=== PATIENT | female | born 1995 | race Two or more races ===

== ENCOUNTER 2019-11-12 09:18 | Inpatient (IN) | payer OTHER ==
[2019-11-12] MEDS ORDERED: LORAZEPAM INJ 2 MG/1 ML VIAL IV ONE ×2 (09:24→09:29)
[2019-11-12] MEDS ORDERED: NORMAL SALINE 1000 ML 1,000 ML IV ONE (09:30)
--- NOTE | 2019-11-12 09:33 | ER Document Report ---
ED Seizure - General Stated Complaint: POSSIBLE SEIZURE Time Seen by Provider: 11/12/19 09:21 Notes: Patient is a 24-year-old female with a past medical history of diabetes who presents emergency department with possible seizure. Patient's is at bedside and states that she had a possible seizure at home and then again here in the emergency department. Patient came in via EMS and her blood sugar was 192, which is normal for her, according to the . Patient reports that the patient has been having diarrhea, but this is from her medication. denies any alcohol use, tobacco use, or illicit drug use. Patient was recently switched from Jardiance to Rybelsus for her diabetes. According to the , the patient's blood sugars have been anywhere from 120-230. - Related Data Allergies/Adverse Reactions: No Known Allergies Allergy (Unverified 11/12/19 15:02) Past Medical History - Social History Smoking Status: Never Smoker Family History: Reviewed & Not Pertinent Review of Systems - Review of Systems -: Yes ROS unobtainable due to patient's medical condition Physical Exam - Vital signs Vitals: Resp Pulse Ox 27 H 100 11/12/19 09:29 11/12/19 09:29 - Notes Notes: PHYSICAL EXAMINATION: GENERAL: Appears ill. HEAD: Normocephalic, atraumatic. EYES: PERRL, conjunctiva normal, all extraocular movements intact, sclera nonicteric ENT: Moist mucous membranes. NECK: Supple, no noticeable swelling, redness, rash. Normal range of motion. LUNGS: Coarse breath sounds noted to left upper lobe. CARDIOVASCULAR: S1-S2, regular rate, regular rhythm. Radial pulses 2+, normal. ABDOMEN: Normoactive bowel sounds. Soft, nontender, no guarding, no rebound tenderness, and no masses palpated. EXTREMITIES: Normal strength and range of motion, no pitting or edema. No cyanosis. NEUROLOGICAL: Postictal. SKIN: Warm, dry. No rash, lesions, ulcerations noted. Normal skin turgor. Course - Re-evaluation Re-evalutation: 11/12/19 10:34 Patient is now alert and oriented to person, but is confused is why to she is here in the hospital. CO2 is 9 and anion gap is 22. Patient received 1 L of IV fluids. Her heart rate has improved from 150s to 138. Chest x-ray is unremarkable. 11/12/19 11:53 Hematology is unremarkable. Blood gas shows a pH of 7.21 with a bicarb of 12.6. This was after a liter of fluids. CO2 on labs is 9. Anion gap is 22. Recheck the patient's blood glucose in her sugar is 200. hCG is negative. LFTs are u nremarkable. Urinalysis shows protein, glucose, and ketones in her urine. Toxicology is unremarkable and serum alcohol is negative. I spoke with Dr. Heath, the hospitalist. Patient will be admitted to [facility]. Patient also started on insulin drip with D5 half NS with 20 M EQ's of potassium, as po tassium is only 4.1. I reevaluated the patient asked if she had any shortness of breath, as she is on some control. She denies any shortness of breath or difficulty breathing. I have a low suspicion for pulmonary emboli. Her tachycardia is most likely due to her diabetic ketoacidosis. - Vital Signs Vital signs: Temp Pulse Resp BP Pulse Ox 98.3 F 109 H 20 99/64 L 100 11/12/19 20:29 11/12/19 20:29 11/12/19 20:29 11/12/19 20:29 11/12/19 20:29 - Laboratory Result Diagrams: 11/12/19 09:40 11/12/19 12:47 Laboratory results interpreted by me: 11/12/19 11/12/19 11/12/19 09:40 09:40 09:40 MCV 98 H VBG pH VBG pCO2 VBG HCO3 Carbon Dioxide 9 L* Anion Gap 22 H Glucose 237 H POC Glucose Ferritin 200.00 H Urine Protein Urine Glucose (UA) Urine Ketones Urine Blood Ur Leukocyte Esterase 11/12/19 11/12/19 11/12/19 10:35 10:50 11:32 MCV VBG pH 7.21 L VBG pCO2 32.4 L VBG HCO3 12.6 L Carbon Dioxide Anion Gap Glucose POC Glucose 200 H Ferritin Urine Protein 30 H Urine Glucose (UA) 150 H Urine Ketones 20 H Urine Blood MODERATE H Ur Leukocyte Esterase TRACE H - EKG Interpretation by Me Additional EKG results interpreted by me: 11/12/19 10:35 Sinus tachycardia. Rate 136; OK 124; QRS 74; QT 288; QTc 434. No ST elevations or depressions noted. Critical Care Note - Critical Care Note Total time excluding time spent on procedures (mins): 30 Comments: Critical care time spent obtaining history from patient or surrogate, discussions with consultants, development of treatment plan with patient or surrogate, evaluation of patient's response to treatment, examination of patient, ordering and performing treatments and interventions, ordering and review of laboratory studies, re-evaluation of patient's condition, ordering and review of radiographic studies and review of old charts Discharge - Discharge Clinical Impression: Seizure Diabetic ketoacidosis Qualifiers: Diabetes mellitus type: other specified (including JAMES) Diabetes mellitus complication detail: with coma Qualified Code(s): E13.11 - Other specified diabetes mellitus with ketoacidosis with coma Condition: Stable Disposition: ADMITTED INPATIENT Admitting Provider: Ivana (Hospitalist) Unit Admitted: [facility]
[2019-11-12 09:53] LABS: ABSOLUTE EOSINOPHILS # (AUTO) 0.1 10^3/uL (0.0-0.6); ABSOLUTE LYMPHOCYTES (AUTO) 2.6 10^3/uL (0.5-4.7); ABSOLUTE MONOCYTES (AUTO) 0.4 10^3/uL (0.1-1.4); ABSOLUTE NEUT (AUTO) 4.2 10^3/uL (1.7-8.2); BASOPHILS % (AUTO) 0.6 % (0-2); EOSINOPHILS % (AUTO) 1.5 % (0-6); HEMATOCRIT 40.6 % (36.0-47.0); HEMOGLOBIN 13.9 g/dL (12.0-15.5); LYMPHOCYTES % (AUTO) 35.2 % (13-45); MEAN CORPUSCULAR HEMOGLOBIN 33.4 pg (27.0-33.4); MEAN CORPUSCULAR HGB CONC 34.2 g/dL (32.0-36.0); MEAN CORPUSCULAR VOLUME 98 fl (80-97); PLATELET COUNT 304 10^3/uL (150-450); RED BLOOD COUNT 4.15 10^6/uL (3.72-5.28); RED CELL DISTRIBUTION WIDTH 12.6 % (11.5-14.0); SEGMENTED NEUTROPHILS % (AUTO) 56.7 % (42-78); TOTAL CELLS COUNTED % (AUTO) 100 %; WHITE BLOOD COUNT 7.4 10^3/uL (4.0-10.5)
[2019-11-12 10:07] LABS: ALBUMIN 3.8 g/dL (3.5-5.0); ALKALINE PHOSPHATASE 57 U/L (38-126); ASPARTATE AMINO TRANSFERASE 32 U/L (14-36); BILIRUBIN,DIRECT 0.1 mg/dL (0.0-0.4); BILIRUBIN,TOTAL 0.3 mg/dL (0.2-1.3); BLOOD UREA NITROGEN 20 mg/dL (7-20); CALCIUM 8.5 mg/dL (8.4-10.2); GLUCOSE 237 mg/dL (75-110); POTASSIUM 4.1 mmol/L (3.6-5.0); TOTAL PROTEIN 6.8 g/dL (6.3-8.2)
[2019-11-12 10:12] LABS: CHLORIDE 107 mmol/L (98-107)
[2019-11-12 10:14] LABS: ALCOHOL < 10 mg/dL (NONE DETECTED)
[2019-11-12 10:15] LABS: ANION GAP 22 (5-19); CARBON DIOXIDE 9 mmol/L (22-30)
--- NOTE | 2019-11-12 10:25 | RADIOLOGY REPORT (SQ) ---
EXAM DESCRIPTION: CHEST SINGLE VIEW IMAGES COMPLETED DATE/TIME: 11/12/2019 9:02 am REASON FOR STUDY: tachycardic. COMPARISON: None. EXAM PARAMETERS: NUMBER OF VIEWS: One view. TECHNIQUE: Single frontal radiographic view of the chest acquired. RADIATION DOSE: NA LIMITATIONS: None. FINDINGS: LUNGS AND PLEURA: No opacities, masses or pneumothorax. No pleural effusion. MEDIASTINUM AND HILAR STRUCTURES: No masses. Contour normal. HEART AND VASCULAR STRUCTURES: Heart normal in size. Normal vasculature. BONES: No acute findings. HARDWARE: None in the chest. OTHER: No other significant finding. IMPRESSION: NO ACUTE RADIOGRAPHIC FINDING IN THE CHEST. TECHNICAL DOCUMENTATION: JOB ID: [id number] 2010 [employer]- All Rights Reserved Reading location - IP/workstation name: [email or web address]
[2019-11-12] MEDS ORDERED: RINGERS SOLUTION,LACTATED 1,000 ML IV ONE (10:36)
--- NOTE | 2019-11-12 10:36 | RADIOLOGY REPORT (SQ) ---
EXAM DESCRIPTION: CT HEAD WITHOUT IMAGES COMPLETED DATE/TIME: 11/12/2019 10:16 am REASON FOR STUDY: bed 11 new onset seizure [address] COMPARISON: None. TECHNIQUE: Axial images acquired through the brain without intravenous contrast. Images reviewed wi th bone, brain and subdural windows. Images stored on PACS. All CT scanners at this facility use dose modulation, iterative reconstruction, and/or weight based d osing when appropriate to reduce radiation dose to as low as reasonably achievable (ALARA). [facility]: Dose Right [facility]: SureCare [facility]: Dose Right [facility]: Teradose 4D [facility]: Shyp RADIATION DOSE: CT Rad equipment meets quality standard of care and radiation dose reduction techniq ues were employed. CTDIvol: 53.2 mGy. DLP: 1044 mGy-cm. mGy. LIMITATIONS: The study is significantly limited due to motion during the exam, present on 4 of the i mages. The motion affected images were not repeated. FINDINGS: VENTRICLES: Normal size and contour. CEREBRUM: No mass effect. No hemorrhage. No midline shift. Normal car/white matter differentiatio n. No evidence for acute territorial infarction. CEREBELLUM: No mass effect. No hemorrhage. No alteration of density. No evidence for acute infarct ion. EXTRAAXIAL SPACES: No fluid collections. ORBITS AND GLOBE: Symmetrical contour of the globes. CALVARIUM: No depressed skull fracture. PARANASAL SINUSES: No air-fluid level. SOFT TISSUES: No hematoma. IMPRESSION: 1. Significantly limiting motion on some of the images. 2. Allowing for motion, normal study. TECHNICAL DOCUMENTATION: JOB ID: [id number] [address] [id number]: Final reports with documentation of one or more dose reduction techniques (e.g., Automate d exposure control, adjustment of the mA and/or kV according to patient size, use of iterative recons truction technique) 2010 [employer]- All Rights Reserved Reading location - IP/workstation name: [email or web address]
[2019-11-12 10:58] LABS: APPEARANCE,URINE CLEAR; BILIRUBIN,URINE NEGATIVE (NEGATIVE); COLOR,URINE YELLOW; GLUCOSE, URINE 150 mg/dL (NEGATIVE); KETONES,URINE 20 mg/dL (NEGATIVE); LEUKOCYTE ESTERASE,URINE TRACE (NEGATIVE); NITRITE,URINE NEGATIVE (NEGATIVE); PROTEIN,URINE 30 mg/dL (NEGATIVE); UROBILINOGEN,URINE NEGATIVE mg/dL (<2.0)
[2019-11-12 11:04] LABS: VENOUS BLOOD BASE EXCESS -14.1 mmol/L; VENOUS BLOOD HCO3 12.6 mmol/L (20-32); VENOUS BLOOD PCO2 32.4 mmHg (35-63); VENOUS BLOOD PH 7.21 (7.30-7.42)
[2019-11-12 11:26] LABS: URINE AMPHETAMINES SCREEN NEGATIVE; URINE BARBITURATES SCREEN NEGATIVE; URINE BENZODIAZEPINES SCREEN NEGATIVE; URINE COCAINE SCREEN NEGATIVE; URINE MARIJUANA (THC) SCREEN NEGATIVE; URINE METHADONE SCREEN NEGATIVE; URINE PHENCYCLIDINE SCREEN NEGATIVE
[2019-11-12] MEDS ORDERED: INSULIN REG, HUMAN 100 UNIT/ML 3 ML VIAL (PYX) IV ONE (11:45)
[2019-11-12] MEDS ORDERED: POTASSI CL 20 MEQ/D5-1/2NS 1L 1,000 ML IV PRN (11:47)
[2019-11-12] MEDS ORDERED: NORMAL SALINE 100 ML with INSULIN REGULAR, HUMAN 100 UNIT IV PRN ×2 (12:06)
[2019-11-12 13:34] LABS: ANION GAP 12 (5-19); BLOOD UREA NITROGEN 14 mg/dL (7-20); CALCIUM 8.4 mg/dL (8.4-10.2); CARBON DIOXIDE 18 mmol/L (22-30); CHLORIDE 107 mmol/L (98-107); GLUCOSE 154 mg/dL (75-110); POTASSIUM 4.2 mmol/L (3.6-5.0)
[2019-11-12] MEDS ORDERED: ONDANSETRON 4 MG TAB.RAPDIS PO PRN (16:36)
[2019-11-12] MEDS ORDERED: ACETAMINOPHEN 325 MG TABLET PO PRN (16:36)
[2019-11-12] MEDS ORDERED: LORAZEPAM INJ 2 MG/1 ML VIAL IV PRN (16:58)
--- NOTE | 2019-11-12 17:27 | PDOC H&P ---
History of Present Illness Admission Date/PCP: 11/12/19 12:19 History of Present Illness: BRANDY PATIÑO is a 24 year old female past medical history significant for diabetes mellitus only on semaglutide, oral contraceptive use with Estarylla, bilateral hearing loss of unknown cause who presents with a 1 day history of new onset seizure activity tonic-clonic witnessed by which awoke her from sleep. EMS came to patient's home brought her to ED and she had another witnessed tonic-clonic seizure. Patient was found to be in DKA with high blood sugar and a gap acidosis. Patient denies ever having seizures in the past and states she is a type II diabetic as diagnosed by her PCP. She has never used insulin before. Chest x-ray was unremarkable as well as her head CT on ad mission. By far the most remarkable finding on physical exam is how extremely emaciated the patient is in terms of her muscle mass in general appearance. She is weak all over but this is equal and there are no focal findings. She has a negative neurologic exam other than this. Reflexes and cranial nerves are intact grossly. Patient denies any history of autoimmune disease but states that she has a maternal aunt who has type 1 diabetes. Patient states she had an upper and lower endoscopy within the past year but she does not remember why this was done or what the results were. Patient is highly suspicious for a autoimmune malabsorption disease. She will be admitted to stepdown unit with seizure precautions, as needed Ativan, extensive metabolic and autoimmune work- up, MRI brain, EEG. She will have sliding scale insulin and Accu-Cheks but we will keep her off the insulin drip for now given she is insulin corey and has a high likelihood of dropping her blood sugar precipitously if she is given too much insulin too quickly. Past Medical History Endocrine Medical History: Reports: Diabetes Mellitus Type 2 Psychiatric Medical History: Denies: Depression Past Surgical History Past Surgical History: Reports: None Social History Lives with: Family Smoking Status: Never Smoker Frequency of Alcohol Use: None Hx Recreational Drug Use: No Drugs: None Hx Prescription Drug Abuse: No - Advance Directive Resuscitation Status: Full Code Surrogate healthcare decision maker:: Family History Family History: DM Parental Family History Reviewed: Yes Children Family History Reviewed: Yes Sibling(s) Family History Reviewed.: Yes Medication/Allergy Home Medications: Semaglutide [Rybelsus] 3 mg PO DAILY 11/12/19 Allergies/Adverse Reactions: No Known Allergies Allergy (Unverified 11/12/19 15:02) Review of Systems All systems: reviewed and no additional remarkable complaints except as stated - Review of systems per HPI, otherwise negative Physical Exam Vital Signs: Temp Pulse Resp BP Pulse Ox 98.1 F 113 H 16 108/70 100 11/12/19 16:42 11/12/19 16:42 11/12/19 16:42 11/12/19 16:42 11/12/19 16:42 Intake & Output 11/11/19 11/12/19 11/13/19 06:59 06:59 06:59 Intake Total 1999 Balance 1999 Weight 33.2 kg General appearance: PRESENT: no acute distress, cooperative, hard of hearing, thin, other - Severe diffuse muscle wasting and cachexia Head exam: PRESENT: atraumatic, normocephalic Eye exam: PRESENT: conjunctiva pink Mouth exam: PRESENT: moist Respiratory exam: PRESENT: clear to auscultation dusty. ABSENT: rales, rhonchi, wheezes Cardiovascular exam: PRESENT: RRR. ABSENT: diastolic murmur, rubs, systolic murmur GI/Abdominal exam: PRESENT: normal bowel sounds, soft. ABSENT: distended, guarding, mass, organolmegaly, rebound, tenderness Rectal exam: PRESENT: deferred Extremities exam: ABSENT: pedal edema Musculoskeletal exam: PRESENT: ambulatory Neurological exam: PRESENT: alert, awake, oriented to person, oriented to place, oriented to time, oriented to situation, CN II-XII grossly intact, motor sensory deficit - Diffuse generalized muscle weakness Psychiatric exam: PRESENT: flat affect, normal mood Skin exam: PRESENT: dry, intact, warm Results Laboratory Results: 11/12/19 09:40 11/12/19 12:47 11/12/19 11/12/19 11/12/19 09:40 09:40 09:40 WBC 7.4 RBC 4.15 Hgb 13.9 Hct 40.6 MCV 98 H MCH 33.4 MCHC 34.2 RDW 12.6 Plt Count 304 Seg Neutrophils % 56.7 VBG pH VBG pCO2 VBG HCO3 VBG Base Excess Sodium 137.7 Potassium 4.1 Chloride 107 Carbon Dioxide 9 L* Anion Gap 22 H BUN 20 Creatinine 0.56 Est GFR ( Amer) > 60 Glucose 237 H Calcium 8.5 Magnesium 2.1 Total Bilirubin 0.3 AST 32 Alkaline Phosphatase 57 Total Protein 6.8 Albumin 3.8 Serum HCG, Qual NEGATIVE Urine Color Urine Appearance Urine pH Ur Specific [place] Urine Protein Urine Glucose (UA) Urine Ketones Urine Blood Urine Nitrite Ur Leukocyte Esterase Urine WBC (Auto) Urine RBC (Auto) 11/12/19 11/12/19 11/12/19 10:35 10:50 12:47 WBC RBC Hgb Hct MCV MCH MCHC RDW Plt Count Seg Neutrophils % VBG pH 7.21 L VBG pCO2 32.4 L VBG HCO3 12.6 L VBG Base Excess -14.1 Sodium 136.5 L Potassium 4.2 Chloride 107 Carbon Dioxide 18 L Anion Gap 12 BUN 14 Creatinine 0.45 L Est GFR ( Amer) > 60 Glucose 154 H Calcium 8.4 Magnesium Total Bilirubin AST Alkaline Phosphatase Total Protein Albumin Serum HCG, Qual Urine Color YELLOW Urine Appearance CLEAR Urine pH 5.0 Ur Specific [place] 1.020 Urine Protein 30 H Urine Glucose (UA) 150 H Urine Ketones 20 H Urine Blood MODERATE H Urine Nitrite NEGATIVE Ur Leukocyte Esterase TRACE H Urine WBC (Auto) 3 Urine RBC (Auto) 1 Impressions: Head CT 11/12/19 00:00 IMPRESSION: 1. Significantly limiting motion on some of the images. 2. Allowing for motion, normal study. Chest X-Ray 11/12/19 09:33 IMPRESSION: NO ACUTE RADIOGRAPHIC FINDING IN THE CHEST. Assessment and Plan - Diagnosis (1) Seizure Is this a current diagnosis for this admission?: Yes Plan: New onset seizures, possibly related to DKA, also very likely malabsorption/malnutrition is a large contributing factor As needed Ativan for seizure-like activity, seizure precautions, neuro checks EEG MRI brain with and without contrast Needs follow-up with neurology (2) Diabetic ketoacidosis Qualifiers: Diabetes mellitus type: other specified (including JAMES) Diabetes mellitus complication detail: with coma Qualified Code(s): E13.11 - Other specified diabetes mellitus with ketoacidosis with coma Is this a current diagnosis for this admission?: Yes Plan: Admitted with anion gap metabolic acidosis due to DKA. 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 possibly pancreatic insufficiency Stool elastase, anti-pancreas antibodies as above, vitamin levels, celiac antibodies Extensive work-up as above (4) Bilateral hearing loss Is this a current diagnosis for this admission?: Yes Plan: Progressive hearing loss over the past 2 to 3 years per patient, unknown etiology Highly suspect autoimmune/mitochondrial/genetic etiology Needs formal hearing exam and follow-up with ENT (5) Acute metabolic encephalopathy Is this a current diagnosis for this admission?: Yes Plan: Due to postictal state, gradually improving - Time Time Spent with patient: 35 or more minutes Medications reviewed and adjusted accordingly: Yes Anticipated Discharge Disposition: Home, Self Care Anticipated Discharge Timeframe: within 72 hours - Inpatient Certification Based on my medical assessment, after consideration of the patient's comorbidities, presenting symptoms, or acuity I expect that the services needed warrant INPATIENT care.: Yes I certify that my determination is in accordance with my understanding of Medicare's requirements for reasonable and necessary INPATIENT services [42 CFR 412.3e].: Yes Medical Necessity: Significant Comorbidiites Make Outpatient Treatment Too Risky, Need Close Monitoring Due to Risk of Patient Decompensation, Need For IV Fluids, Need for Neurological Checks, Risk of Complication if Not Cared For in Hospital, Risk of Diagnosis Which Will Require Inpatient Eval/Care/Monitoring
--- NOTE | 2019-11-12 17:32 | ADVANCED CARE ---
- Diagnosis (1) Seizure Diagnosis Current: Yes (2) Diabetic ketoacidosis Diagnosis Current: Yes (3) Severe protein-calorie malnutrition Diagnosis Current: Yes (4) Bilateral hearing loss Diagnosis Current: Yes (5) Acute metabolic encephalopathy Diagnosis Current: Yes Attendance: Patient and Resuscitation Status: Full Code Discussion: All aspects of code status discussed with patient/POA including cardioversion, chest compressions, and intubation and the patient/POA indicated they wish to be full code MPOA is designated as: Time Spent: >16 minutes
[2019-11-12] MEDS: RINGERS SOLUTION,LACTATED 1,000 ML IV PRN (17:44)
[2019-11-12 18:13] LABS: C-REACTIVE PROTEIN 7.1 mg/L (<10.0)
[2019-11-12 19:26] LABS: ABSOLUTE RETICS # 0.048 10^6/uL (0.028-0.122); RETICULOCYTE COUNT (AUTO) 1.08 % (0.66-2.85)
[2019-11-12 20:01] LABS: ERYTHROCYTE SEDIMENTATION RATE 10 mm/hr (0-20)
--- NOTE | 2019-11-12 20:29 | EKG REPORT ---
SEVERITY:- OTHERWISE NORMAL ECG - SINUS TACHYCARDIA : Confirmed by: Anderson Dasilva 12-Nov-2019 20:28:18
[2019-11-12] MEDS: INSULIN LISPRO 100 UNIT/ML 3 ML VIAL SUBCUT SCH (21:51)
[2019-11-13] MEDS: RINGERS SOLUTION,LACTATED 1,000 ML IV PRN ×2 (03:38→15:01)
[2019-11-13 06:44] LABS: ANION GAP 13 (5-19); BLOOD UREA NITROGEN 10 mg/dL (7-20); CALCIUM 9.2 mg/dL (8.4-10.2); CARBON DIOXIDE 19 mmol/L (22-30); CHLORIDE 105 mmol/L (98-107); GLUCOSE 121 mg/dL (75-110); PHOSPHORUS 3.9 mg/dL (2.5-4.5); POTASSIUM 4.1 mmol/L (3.6-5.0)
[2019-11-13 06:58] LABS: FREE T4 (FREE THYROXINE) 1.01 ng/dL (0.78-2.19)
[2019-11-13 07:11] LABS: THYROID STIMULATING HORMONE 0.67 uIU/mL (0.47-4.68)
[2019-11-13] MEDS: INSULIN LISPRO 100 UNIT/ML 3 ML VIAL SUBCUT SCH ×4 (09:16→21:33)
[2019-11-13] MEDS: ENOXAPARIN SODIUM INJ 30 MG/0.3 ML DISP.SYRIN SUBCUT SCH (09:26)
[2019-11-13 10:29] LABS: ABSOLUTE EOSINOPHILS # (AUTO) 0.1 10^3/uL (0.0-0.6); ABSOLUTE LYMPHOCYTES (AUTO) 1.7 10^3/uL (0.5-4.7); ABSOLUTE MONOCYTES (AUTO) 0.6 10^3/uL (0.1-1.4); ABSOLUTE NEUT (AUTO) 5.8 10^3/uL (1.7-8.2); BASOPHILS % (AUTO) 0.3 % (0-2); EOSINOPHILS % (AUTO) 1.1 % (0-6); HEMOGLOBIN 13.7 g/dL (12.0-15.5); LYMPHOCYTES % (AUTO) 20.4 % (13-45); MEAN CORPUSCULAR HEMOGLOBIN 32.9 pg (27.0-33.4); MONOCYTES % (AUTO) 7.1 % (3-13); PLATELET COUNT 259 10^3/uL (150-450); RED BLOOD COUNT 4.15 10^6/uL (3.72-5.28); SEGMENTED NEUTROPHILS % (AUTO) 71.1 % (42-78); TOTAL CELLS COUNTED % (AUTO) 100 %; WHITE BLOOD COUNT 8.1 10^3/uL (4.0-10.5)
[2019-11-13 10:32] LABS: MEAN CORPUSCULAR VOLUME 94 fl (80-97)
--- NOTE | 2019-11-13 12:40 | RADIOLOGY REPORT (SQ) ---
EXAM DESCRIPTION: MRI HEAD COMBO IMAGES COMPLETED DATE/TIME: 11/13/2019 11:35 am REASON FOR STUDY: Seizure, AMS, weight loss COMPARISON: 11/12/2019 TECHNIQUE: Multiplanar imaging includes noncontrasted T1, T2, FLAIR, diffusion with ADC map and post gadolinium contrast T1 sequences. Images stored on PACS. CONTRAST TYPE AND DOSE: 10 mL Prohance. RENAL FUNCTION: Not indicated. ACR Type II contrast agent associated with few, if any, unconfounded cases of NSF LIMITATIONS: None. FINDINGS: ANATOMY: No anomalies. Normal vascular flow voids. Pituitary fossa normal. CSF SPACES: Normal in size and contour. No hemorrhage. CEREBRUM: There is abnormal T2 and FLAIR signal the predominantly involving the cortical region of th e anterior and mesial left temporal lobe. There is additional small focus of T2/FLAIR signal abnorma lity involving the paramedian left occipital lobe (series 8, image 11). There is mild associated cor tical diffusion signal abnormality involving these regions as well without definitive decreased signa l on the ADC map. There is local with gyral swelling. No significant mass effect or midline shift. There is no significant abnormal postcontrast enhancement. No intracranial hemorrhage. POSTERIOR FOSSA: No signal alteration. No hemorrhage. No edema, masses, or mass effect. Internal broderick tory canals, cerebellopontine angles, mastoids normal. No enhancing lesions. No abnormal enhancement post contrast. DIFFUSION IMAGING: As above. ORBITS: No masses. Globes normal. PARANASAL SINUSES: No fluid levels. Mucosa normal. OTHER: No other significant finding. IMPRESSION: Abnormal T2 and FLAIR signal predominantly involving the cortical region of the anterior and mesial left temporal lobe. Additional small focus involving the left paramedian occipital lobe. Associated local gyral swelling without significant mass effect or midline shift. No evidence of i ntracranial hemorrhage. Findings nonspecific but can be seen with encephalitis including viral encep halitis (herpes encephalitis), autoimmune encephalitis, among other entities. Findings conveyed to at 1203 hours on 11/13/2019. EVIDENCE OF ACUTE STROKE: NO. TECHNICAL DOCUMENTATION: JOB ID: [id number] 2010 [employer]- All Rights Reserved Reading location - IP/workstation name: [email or web address]
[2019-11-13] MEDS: OXYCODONE-ACETAMINOPHEN 5-325 MG TABLET PO PRN (15:01)
[2019-11-13 15:52] LABS: INTERNATIONAL RATION (INR) 0.92; PARTIAL THROMBOPLASTIN TIME 33.9 SEC (23.5-35.8); PROTHROMBIN TIME 12.6 SEC (11.4-15.4)
[2019-11-13 16:01] LABS: FOLATE 11.3 ng/mL (>2.76)
[2019-11-13] MEDS ORDERED: DOCUSATE SODIUM 100 MG CAPSULE PO SCH (17:00)
[2019-11-13] MEDS: LEVOCARNITINE INJ/PF 1000 MG/5 ML SDV IV SCH (17:33)
[2019-11-13] MEDS: ONDANSETRON HCL INJ/PF 4 MG/2 ML SDV IV PRN ×2 (17:38→21:35)
--- NOTE | 2019-11-13 18:32 | PDOC PROGRESS REPORT ---
Subjective Subjective:: Patient admitted for new onset seizures and DKA. 11/13/2019 Many lab tests ordered and some of them have resulted today. Patient has an A1c of 7.2. She does not seem to have any vitamin deficiency based on her iron and B12 studies. The fact does remain that she is extremely malnourished with a BMI of approximately 14. The MRI of her brain showed an abnormal left temporal lobe possibly viral encephalitis versus autoimmune encephalitis or other etiology. I have ordered a lumbar puncture with appropriate chemistries and cultures including PCR for HSV 1 and 2. I consulted with neurology at [facility] and spoke with Dr. Peralta who stated my work-up so far is very good and he did not have any specific suggestions. He states if we would like to call him after the lumbar puncture results are back he can discuss these with us. He would also like the MRI forwarded to him so that he can review them personally. I explained a great deal to the patient and her about the patient's course thus far and results we have. They are in agreement with the plan going forward. Although patient is alert and oriented there is certainly something wrong with her cognitive ability. She has a great deal of difficulty following conversation with poor attention and perhaps some mildly slurred speech. Reason For Visit: NEW ONSET SEIZURE,DKA Physical Exam Vital Signs: Temp Pulse Resp BP Pulse Ox 98.2 F 93 16 98/66 L 100 11/13/19 11:50 11/13/19 14:00 11/13/19 11:50 11/13/19 11:50 11/13/19 11:50 Intake & Output 11/12/19 11/13/19 11/14/19 06:59 06:59 06:59 Intake Total 3300 982 Output Total 1350 Balance 1950 982 Weight 33.7 kg Exam: General appearance: PRESENT: no acute distress, cooperative, hard of hearing, thin, other - Severe diffuse muscle wasting and cachexia Head exam: PRESENT: atraumatic, normocephalic Eye exam: PRESENT: conjunctiva pink Mouth exam: PRESENT: moist Respiratory exam: PRESENT: clear to auscultation dusty. ABSENT: rales, rhonchi, wheezes Cardiovascular exam: PRESENT: RRR. ABSENT: diastolic murmur, rubs, systolic murmur GI/Abdominal exam: PRESENT: normal bowel sounds, soft. ABSENT: distended, guarding, mass, organolmegaly, rebound, tenderness Rectal exam: PRESENT: deferred Extremities exam: ABSENT: pedal edema Musculoskeletal exam: PRESENT: ambulatory Neurological exam: PRESENT: alert, awake, oriented to person, oriented to place, oriented to time, oriented to situation, CN II-XII grossly intact, motor sensory deficit - Diffuse generalized muscle weakness Psychiatric exam: PRESENT: flat affect, normal mood Skin exam: PRESENT: dry, intact, warm Results Laboratory Results: 11/13/19 09:52 11/13/19 05:33 11/12/19 11/12/19 11/13/19 09:40 18:50 05:33 WBC Cancelled RBC Cancelled Hgb Cancelled Hct Cancelled MCV Cancelled MCH Cancelled MCHC Cancelled RDW Cancelled Plt Count Cancelled Seg Neutrophils % Cancelled Retic Count (auto) 1.08 Sodium Potassium Chloride Carbon Dioxide Anion Gap BUN Creatinine Est GFR ( Amer) Glucose Calcium Phosphorus Magnesium Iron 151.0 TIBC 299 % Saturation 51 Ferritin 200.00 H C-Reactive Protein 7.1 Vitamin B12 682.0 Folate 11.00 TSH Free T4 11/13/19 11/13/19 11/13/19 05:33 05:33 05:33 WBC RBC Hgb Hct MCV MCH MCHC RDW Plt Count Seg Neutrophils % Retic Count (auto) Sodium 137.3 Potassium 4.1 Chloride 105 Carbon Dioxide 19 L Anion Gap 13 BUN 10 Creatinine 0.46 L Est GFR ( Amer) > 60 Glucose 121 H Calcium 9.2 Phosphorus 3.9 Magnesium 1.9 Iron TIBC % Saturation Ferritin C-Reactive Protein Vitamin B12 705.0 Folate 11.30 TSH 0.67 Free T4 1.01 11/13/19 09:52 WBC 8.1 RBC 4.15 Hgb 13.7 Hct 39.0 MCV 94 D MCH 32.9 MCHC 35.0 RDW 12.0 Plt Count 259 Seg Neutrophils % 71.1 Retic Count (auto) Sodium Potassium Chloride Carbon Dioxide Anion Gap BUN Creatinine Est GFR ( Amer) Glucose Calcium Phosphorus Magnesium Iron TIBC % Saturation Ferritin C-Reactive Protein Vitamin B12 Folate TSH Free T4 Impressions: Head CT 11/12/19 00:00 IMPRESSION: 1. Significantly limiting motion on some of the images. 2. Allowing for motion, normal study. Chest X-Ray 11/12/19 09:33 IMPRESSION: NO ACUTE RADIOGRAPHIC FINDING IN THE CHEST. Head MRI 11/13/19 00:00 IMPRESSION: Abnormal T2 and FLAIR signal predominantly involving the cortical region of the anterior and mesial left temporal lobe. Additional small focus involving the left paramedian occipital lobe. Associated local gyral swelling without significant mass effect or midline shift. No evidence of intracranial hemorrhage. Findings nonspecific but can be seen with encephalitis including viral encephalitis (herpes encephalitis), autoimmune encephalitis, among other entities. Findings conveyed to at 1203 hours on 11/13/2019. EVIDENCE OF ACUTE STROKE: NO. Assessment and Plan - Diagnosis (1) Seizure Is this a current diagnosis for this admission?: Yes Plan: New onset seizures, possibly related to DKA, also very likely malabsorption/malnutrition is a large contributing factor As needed Ativan for seizure-like activity, seizure precautions, neuro checks EEG MRI brain with and without contrast Needs follow-up with neurology 11/13/[address] Peralta and neurology at [facility]. He agreed with lumbar puncture and requested the patient's MRI be forwarded to him for review. He is available for us to call him back once we have more results to discuss with him. He did not recommend any specific treatments and agreed that we do not need to start an AED at this time as seizure may have been precipitated by DKA. MRI brain showed inflammation in left temporal lobe possibly due to viral or autoimmune encephalitis, no strokes or masses EEG pending No further seizure activity since admission Given the patient has persistent moderate to severe headaches and the other constellation of symptoms such as bilaterals likely sensorineural hearing loss, young onset type 1 diabetes, new onset seizures, severe malnutrition, I am very concerned that the patient may have MELAS and I d/w them. (2) Diabetic ketoacidosis Qualifiers: Diabetes mellitus type: other specified (including JAMES) Diabetes mellitus complication detail: with coma Qualified Code(s): E13.11 - Other specified diabetes mellitus with ketoacidosis with coma Is this a current diagnosis for this admission?: Yes Plan: Admitted with anion gap metabolic acidosis due to DKA. 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: Ordered anti-RYAN, anti-beta islet cell antibodies Sliding scale insulin, Accu-Cheks IV fluid switch to LR as gap is closed and blood sugar is in the 90s on admission Suspect she may have a larger unifying diagnosis possibly of mitochondrial/genetic origin 11/13/2019 A1c is 7.2, continue Accu-Chek and sliding scale insulin Needs referral to endocrinology (3) Severe protein-calorie malnutrition Is this a current diagnosis for this admission?: Yes (4) Bilateral hearing loss Is this a current diagnosis for this admission?: Yes (5) Acute metabolic encephalopathy Is this a current diagnosis for this admission?: Yes - Time Time Spent with patient: 35 or more minutes Medications reviewed and adjusted accordingly: Yes Anticipated Discharge Disposition: Home, Self Care Anticipated Discharge Timeframe: within 72 hours - Inpatient Certification Based on my medical assessment, after consideration of the patient's comorbidities, presenting symptoms, or acuity I expect that the services needed warrant INPATIENT care.: Yes I certify that my determination is in accordance with my understanding of Medicare's requirements for reasonable and necessary INPATIENT services [42 CFR 412.3e].: Yes Medical Necessity: Significant Comorbidiites Make Outpatient Treatment Too Risky, Need Close Monitoring Due to Risk of Patient Decompensation, Need For IV Fluids, Risk of Complication if Not Cared For in Hospital, Risk of Diagnosis Which Will Require Inpatient Eval/Care/Monitoring
--- NOTE | 2019-11-13 20:40 | NEURO WORKBENCH EEG REPORT ---
EEG Report Patient: Odilia Brown ID: [id number] Referring Doctor: Romie Heath DOS: 11/13/2019 Medications: lovenox, humalog, Ringers lactate History This is a 24 year old right handed female with a history of type 2 diabetes who presented to ER with seizure-like activity on 11/12/2019. This EEG was requested for seizures and altered mental status. EEG Interpretation This EEG was recorded in the awake, drowsy, and sleep states. The awake EEG is characterized by a well-organized background with a well-developed and reactive posterior dominant rhythm of 9 Hz. The remainder of the background was characterized by a combination of alpha with some beta frequencies. Drowsiness was characterized by slowing of the background rhythms. Vertex waves and sleep spindles were seen in the midline head regions. Photic stimulation resulted in no significant changes. Hyperventilation resulted in generalized slowing of the background. There were no epileptiform abnormalities. The EKG showed a regular rhythm. EEG Classification * Normal EEG Impression This EEG is within normal limits for age. INTERPRETING NEUROLOGIST: Desiree Correa MD, CPC Board Certified in Neurology, with special qualification in Child Neurology, and in Clinical Neurophysiology [facility]
[2019-11-14] MEDS: RINGERS SOLUTION,LACTATED 1,000 ML IV PRN ×2 (03:36→16:38)
[2019-11-14 04:44] LABS: ABSOLUTE EOSINOPHILS # (AUTO) 0.2 10^3/uL (0.0-0.6); ABSOLUTE LYMPHOCYTES (AUTO) 2.2 10^3/uL (0.5-4.7); ABSOLUTE MONOCYTES (AUTO) 0.5 10^3/uL (0.1-1.4); ABSOLUTE NEUT (AUTO) 3.4 10^3/uL (1.7-8.2); BASOPHILS % (AUTO) 0.5 % (0-2); EOSINOPHILS % (AUTO) 3.1 % (0-6); HEMATOCRIT 35.8 % (36.0-47.0); HEMOGLOBIN 12.7 g/dL (12.0-15.5); LYMPHOCYTES % (AUTO) 34.1 % (13-45); MEAN CORPUSCULAR HEMOGLOBIN 33.3 pg (27.0-33.4); MEAN CORPUSCULAR HGB CONC 35.4 g/dL (32.0-36.0); MEAN CORPUSCULAR VOLUME 94 fl (80-97); MONOCYTES % (AUTO) 7.8 % (3-13); PLATELET COUNT 236 10^3/uL (150-450); RED CELL DISTRIBUTION WIDTH 12.1 % (11.5-14.0); SEGMENTED NEUTROPHILS % (AUTO) 54.5 % (42-78); TOTAL CELLS COUNTED % (AUTO) 100 %; WHITE BLOOD COUNT 6.3 10^3/uL (4.0-10.5)
[2019-11-14 05:14] LABS: ANION GAP 8 (5-19); BLOOD UREA NITROGEN 13 mg/dL (7-20); CALCIUM 9.1 mg/dL (8.4-10.2); CARBON DIOXIDE 24 mmol/L (22-30); CHLORIDE 104 mmol/L (98-107); GLUCOSE 137 mg/dL (75-110)
[2019-11-14] MEDS: LEVOCARNITINE INJ/PF 1000 MG/5 ML SDV IV SCH ×2 (06:12→17:58)
[2019-11-14] MEDS: INSULIN LISPRO 100 UNIT/ML 3 ML VIAL SUBCUT SCH ×4 (07:53→21:50)
[2019-11-14] MEDS: ENOXAPARIN SODIUM INJ 30 MG/0.3 ML DISP.SYRIN SUBCUT SCH (09:12)
[2019-11-14] MEDS: THIAMINE HCL 100 MG in NORMAL SALINE 50 ML IV SCH (09:15)
--- NOTE | 2019-11-14 11:27 | RADIOLOGY REPORT (SQ) ---
EXAM DESCRIPTION: LUMBAR PUNCTURE IMAGES COMPLETED DATE/TIME: 11/14/2019 11:08 am REASON FOR STUDY: encephalitis, seizure COMPARISON: None. FLUOROSCOPY TIME: 0.4 minutes 1 Images saved to PACS. TECHNIQUE: Fluoroscopic guided lumbar puncture with opening and closing pressures. LIMITATIONS: None. PROCEDURE: After written consent and assessment were obtained, the patient was brought into the fluo roscopy room and placed prone on the table. The patient's lower back was prepped in a sterile fashion and an entry site was selected under live fluoroscopic guidance. The entry site was anesthetized wit h 1% lidocaine. A 20 gauge needle was advanced through the skin and into the thecal sac at the level of L 2 -L 3 . An opening pressure of 24 units was obtained. After approximately 9.5 ml of CSF was laina ined, a closing pressure of 16 units was obtained. The needle was removed and a sterile bandage was p laced of the site. Specimens were sent to the lab for testing. A fluoroscopic spot image was saved to PACS confirming level access. FINDINGS: Clear CSF IMPRESSION: Lumbar puncture under fluoroscopy. No immediate complication. COMMENT: Patient medication list reviewed: Yes- Quality ID# [id number]:Eligible professional attests to doc umenting in the medical record they obtained, updated, or reviewed the patient's current medications. Quality ID [id number]: Final reports for procedures using fluoroscopy that document radiation exposure indic es, or exposure time and number of fluorographic images (if radiation exposure indices are not availa ble) TECHNICAL DOCUMENTATION: Job ID: [id number] 2010 [employer]- All Rights Reserved Reading location - IP/workstation name: [id number]
[2019-11-14 12:17] LABS: GLUCOSE,CSF 86 mg/dL (40-70); PROTEIN,CSF 43 mg/dL (12-60)
[2019-11-14 12:37] LABS: APPEARANCE ALL TUBES CLEAR; COLOR ALL TUBES COLORLESS; CSF TOTAL VOLUME 9.9 CC; CSF TUBE NUMBER 3; VOLUME TUBE 2 2.2 CC; VOLUME TUBE 3 2.5 CC; VOLUME TUBE 4 3.2 CC
[2019-11-14 12:42] LABS: RED BLOOD CELL,CSF 0 /uL (0-10); WHITE BLOOD CELL,CSF 0 /uL (0-5)
[2019-11-14] MEDS: OXYCODONE-ACETAMINOPHEN 5-325 MG TABLET PO PRN (13:51)
[2019-11-14] MEDS: ONDANSETRON HCL INJ/PF 4 MG/2 ML SDV IV PRN (16:39)
[2019-11-14] MEDS ORDERED: OXYCODONE-ACETAMINOPHEN 5-325 MG TABLET PO ONE (17:00)
--- NOTE | 2019-11-14 18:47 | PDOC PROGRESS REPORT ---
Subjective Subjective:: Patient admitted for new onset seizures and DKA. 11/13/2019 Many lab tests ordered and some of them have resulted today. Patient has an A1c of 7.2. She does not seem to have any vitamin deficiency based on her iron and B12 studies. The fact does remain that she is extremely malnourished with a BMI of approximately 14. The MRI of her brain showed an abnormal left temporal lobe possibly viral encephalitis versus autoimmune encephalitis or other etiology. I have ordered a lumbar puncture with appropriate chemistries and cultures including PCR for HSV 1 and 2. I consulted with neurology at [facility] and spoke with Dr. Peralta who stated my work-up so far is very good and he did not have any specific suggestions. He states if we would like to call him after the lumbar puncture results are back he can discuss these with us. He would also like the MRI forwarded to him so that he can review them personally. I explained a great deal to the patient and her about the patient's course thus far and results we have. They are in agreement with the plan going forward. Although patient is alert and oriented there is certainly something wrong with her cognitive ability. She has a great deal of difficulty following conversation with poor attention and perhaps some mildly slurred speech. 11/14/2019 Patient had some vomiting overnight when she ate a [employer] sub-a little bit too quickly. She has not had any vomiting since then has been eating her meals normally. She had a lumbar puncture today and initial results show a mildly elevated glucose and a normal protein neither of which are concerning for acute infection or any other specific process to explain her symptoms. Cultures on the CSF will be pending for a few days and I explained this to the patient and her . If she remains stable tonight and in the morning, patient can likely be discharged home with multiple appropriate follow-ups including establishing with a new PCP, endocrinology, and following up with neurology. They are interested in following up with Dr. Peralta at [facility] as he is already familiar with the case. Otherwise, labs and vitals remained stable today. Patient will likely to be discharged on insulin given she is much more likely to be type I rather than type 2 diabetes. Pancreas antibodies to prove this are still pending. I will start her on low-dose Lantus to keep her from having DKA in the future. She can also go home with sliding scale insulin and we will get the meter engineer to see her before she leaves. Reason For Visit: NEW ONSET SEIZURE,DKA Physical Exam Vital Signs: Temp Pulse Resp BP Pulse Ox 97.9 F 78 16 97/67 L 100 11/14/19 07:55 11/14/19 14:00 11/14/19 11:27 11/14/19 11:27 11/14/19 11:27 Intake & Output 11/13/19 11/14/19 11/15/19 06:59 06:59 06:59 Intake Total 3300 2242 1051 Output Total 1350 1600 Balance 3197 062 6322 Weight 33.7 kg 40.7 kg Exam: General appearance: PRESENT: no acute distress, cooperative, hard of hearing, thin, other - Severe diffuse muscle wasting and cachexia, states she is doing well today Head exam: PRESENT: atraumatic, normocephalic Eye exam: PRESENT: conjunctiva pink Mouth exam: PRESENT: moist Respiratory exam: PRESENT: clear to auscultation dusty. ABSENT: rales, rhonchi, wheezes Cardiovascular exam: PRESENT: RRR. ABSENT: diastolic murmur, rubs, systolic murmur GI/Abdominal exam: PRESENT: normal bowel sounds, soft. ABSENT: distended, guarding, mass, organolmegaly, rebound, tenderness Rectal exam: PRESENT: deferred Extremities exam: ABSENT: pedal edema Musculoskeletal exam: PRESENT: ambulatory Neurological exam: PRESENT: alert, awake, oriented to person, oriented to place, oriented to time, oriented to situation, CN II-XII grossly intact, motor sensory deficit - Diffuse generalized muscle weakness Psychiatric exam: PRESENT: flat affect, normal mood Skin exam: PRESENT: dry, intact, warm Results Laboratory Results: 11/14/19 04:00 11/14/19 04:00 11/14/19 11/14/19 11/14/19 04:00 04:00 10:58 WBC 6.3 RBC 3.80 Hgb 12.7 Hct 35.8 L MCV 94 MCH 33.3 MCHC 35.4 RDW 12.1 Plt Count 236 Seg Neutrophils % 54.5 Sodium 135.8 L Potassium 4.0 Chloride 104 Carbon Dioxide 24 Anion Gap 8 BUN 13 Creatinine 0.47 L Est GFR ( Amer) > 60 Glucose 137 H Calcium 9.1 Fluid Tube Number CSF Volume CSF Appearance CSF Color CSF WBC CSF RBC CSF Glucose 86 H CSF Total Protein 43 11/14/19 10:58 WBC RBC Hgb Hct MCV MCH MCHC RDW Plt Count Seg Neutrophils % Sodium Potassium Chloride Carbon Dioxide Anion Gap BUN Creatinine Est GFR ( Amer) Glucose Calcium Fluid Tube Number 3 CSF Volume 9.9 CSF Appearance CLEAR CSF Color COLORLESS CSF WBC 0 CSF RBC 0 CSF Glucose CSF Total Protein Impressions: Head CT 11/12/19 00:00 IMPRESSION: 1. Significantly limiting motion on some of the images. 2. Allowing for motion, normal study. Chest X-Ray 11/12/19 09:33 IMPRESSION: NO ACUTE RADIOGRAPHIC FINDING IN THE CHEST. Head MRI 11/13/19 00:00 IMPRESSION: Abnormal T2 and FLAIR signal predominantly involving the cortical region of the anterior and mesial left temporal lobe. Additional small focus involving the left paramedian occipital lobe. Associated local gyral swelling without significant mass effect or midline shift. No evidence of intracranial hemorrhage. Findings nonspecific but can be seen with encephalitis including viral encephalitis (herpes encephalitis), autoimmune encephalitis, among other entities. Findings conveyed to at 1203 hours on 11/13/2019. EVIDENCE OF ACUTE STROKE: NO. Lumbar Puncture 11/14/19 00:00 IMPRESSION: Lumbar puncture under fluoroscopy. No immediate complication. Assessment and Plan - Diagnosis (1) Seizure Is this a current diagnosis for this admission?: Yes Plan: New onset seizures, possibly related to DKA, also very likely malabsorption/malnutrition is a large contributing factor As needed Ativan for seizure-like activity, seizure precautions, neuro checks EEG MRI brain with and without contrast Needs follow-up with neurology 11/13/[address] Peralta and neurology at [facility]. He agreed with lumbar puncture and requested the patient's MRI be forwarded to him for review. He is available for us to call him back once we have more results to discuss with him. He did not recommend any specific treatments and agreed that we do not need to start an AED at this time as seizure may have been precipitated by DKA. MRI brain showed inflammation in left temporal lobe possibly due to viral or autoimmune encephalitis, no strokes or masses EEG pending No further seizure activity since admission Given the patient has persistent moderate to severe headaches and the other constellation of symptoms such as bilaterals likely sensorineural hearing loss, young onset type 1 diabetes, new onset seizures, severe malnutrition, I am very concerned that the patient may have MELAS and I d/w them. 11/14/2019 EEG normal Lumbar puncture showed mildly elevated glucose and normal protein, findings not consistent with any acute infection, no need for antibiotics or antivirals No further seizures since admission, does not qualify for instituting an AED at this time and neurology agrees with this Lantus low-dose started to hopefully avoid future episodes of DKA (2) Diabetic ketoacidosis Qualifiers: Diabetes mellitus type: other specified (including JAMES) Diabetes mellitus complication detail: with coma Qualified Code(s): E13.11 - Other specified d iabetes mellitus with ketoacidosis with coma Is this a current diagnosis for this admission?: Yes Plan: Admitted with anion gap metabolic acidosis due to DKA. 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: Ordered anti-RYAN, anti-beta islet cell antibodies Sliding scale insulin, Accu-Cheks IV fluid switch to LR as gap is closed and blood sugar is in the 90s on admission Suspect she may have a larger unifying diagnosis possibly of mitochondrial/genetic origin 11/13/2019 A1c is 7.2, continue Accu-Chek and sliding scale insulin Needs referral to endocrinology 11/14/2019 Low-dose Lantus started, sliding scale insulin sales trainer (3) Severe protein-calorie malnutrition Is this a current diagnosis for this admission?: Yes (4) Bilateral hearing loss Is this a current diagnosis for this admission?: Yes (5) Acute metabolic encephalopathy Is this a current diagnosis for this admission?: Yes Plan: Due to postictal state, gradually improving Back to baseline per , baseline does not seem completely normal either however, may have some chronic cognitive impairment underlying which is a bit subtle - Time Time Spent with patient: 35 or more minutes Medications reviewed and adjusted accordingly: Yes Anticipated Discharge Disposition: Home, Self Care Anticipated Discharge Timeframe: within 24 hours - Inpatient Certification Based on my medical assessment, after consideration of the patient's esther rbidities, presenting symptoms, or acuity I expect that the services needed warrant INPATIENT care.: Yes I certify that my determination is in accordance with my understanding of Medicare's requirements for reasonable and necessary INPATIENT services [42 CFR 412.3e].: Yes Medical Necessity: Significant Comorbidiites Make Outpatient Treatment Too Risky, Need Close Monitoring Due to Risk of Patient Decompensation, Risk of Complication if Not Cared For in Hospital, Risk of Diagnosis Which Will Require Inpatient Eval/Care/Monitoring
[2019-11-14] MEDS ORDERED: INSULIN GLARGINE,HUM.REC.ANLOG 1,000 UNIT/10 ML VIAL SUBCUT SCH ×2 (22:00)
[2019-11-15] MEDS: LEVOCARNITINE INJ/PF 1000 MG/5 ML SDV IV SCH (05:18)
[2019-11-15 05:38] LABS: ABSOLUTE EOSINOPHILS # (AUTO) 0.1 10^3/uL (0.0-0.6); ABSOLUTE LYMPHOCYTES (AUTO) 1.8 10^3/uL (0.5-4.7); ABSOLUTE MONOCYTES (AUTO) 0.4 10^3/uL (0.1-1.4); ABSOLUTE NEUT (AUTO) 2.7 10^3/uL (1.7-8.2); BASOPHILS % (AUTO) 0.6 % (0-2); EOSINOPHILS % (AUTO) 1.4 % (0-6); HEMATOCRIT 37.1 % (36.0-47.0); HEMOGLOBIN 13.1 g/dL (12.0-15.5); LYMPHOCYTES % (AUTO) 36.5 % (13-45); MEAN CORPUSCULAR HEMOGLOBIN 32.9 pg (27.0-33.4); MEAN CORPUSCULAR HGB CONC 35.3 g/dL (32.0-36.0); MEAN CORPUSCULAR VOLUME 93 fl (80-97); MONOCYTES % (AUTO) 7.9 % (3-13); PLATELET COUNT 251 10^3/uL (150-450); RED BLOOD COUNT 3.98 10^6/uL (3.72-5.28); RED CELL DISTRIBUTION WIDTH 11.8 % (11.5-14.0); SEGMENTED NEUTROPHILS % (AUTO) 53.6 % (42-78); TOTAL CELLS COUNTED % (AUTO) 100 %
[2019-11-15] MEDS: INSULIN LISPRO 100 UNIT/ML 3 ML VIAL SUBCUT SCH ×2 (08:10→13:05)
[2019-11-15] MEDS: ENOXAPARIN SODIUM INJ 30 MG/0.3 ML DISP.SYRIN SUBCUT SCH (09:21)
[2019-11-15] MEDS: THIAMINE HCL 100 MG in NORMAL SALINE 50 ML IV SCH (09:24)
[2019-11-15] MEDS: OXYCODONE-ACETAMINOPHEN 5-325 MG TABLET PO PRN (09:28)
[2019-11-15 10:30] LABS: GLUTAMIC ACID DECARBOXYL-65 AB <5.0 U/mL (0.0-5.0)
[2019-11-15 11:55] LABS: DEAMIDATED GLIADIN IGA AB 7 units (0-19); DEAMIDATED GLIADIN IGG AB 4 units (0-19); T-TRANSGLUTAMINASE (TTG) IGA <2 U/mL (0-3); T-TRANSGLUTAMINASE (TTG) IGG <2 U/mL (0-5)
--- NOTE | 2019-11-15 14:00 | PDOC DISCHARGE SUMMARY ---
Impression - Admit/DC Date/PCP Admission Date/Primary Care Provider: 11/12/19 12:19 Discharge Date: 11/15/19 - Discharge Diagnosis (1) Seizure Is this a current diagnosis for this admission?: Yes (2) Diabetic ketoacidosis Is this a current diagnosis for this admission?: Yes (3) Acute metabolic encephalopathy Is this a current diagnosis for this admission?: Yes (4) Bilateral hearing loss Is this a current diagnosis for this admission?: Yes (5) Severe protein-calorie malnutrition Is this a current diagnosis for this admission?: Yes - Additional Information Resuscitation Status: Full Code Discharge Diet: Diabetic Referrals: BUSTER PERALTA MD [NO LOCAL MD] - (Office stated that they need new patient referral -referral sent.) SANAM FINN MD [[facility] BASED STAFF] - Prescriptions: Insulin Glargine,Hum.rec.anlog [Lantus Insulin 100 Unit/1 ml 10 ml] 5 unit SUBCUT QHS #10 ml Home Medications: Insulin Glargine,Hum.rec.anlog [Lantus Insulin 100 Unit/1 ml 10 ml] 5 unit SUBCUT QHS #10 ml 11/15/19 History of Present Illiness History of Present Illness: According to admitting provider: BRANDY PATIÑO is a 24 year old female past medical history significant for diabetes mellitus only on semaglutide, oral contraceptive use with Estarylla, bilateral hearing loss of unknown cause who presents with a 1 day history of new onset seizure activity tonic-clonic witnessed by which awoke her from sleep. EMS came to patient's home brought her to ED and she had another witnessed tonic-clonic seizure. Patient was found to be in DKA with high blood sugar and a gap acidosis. Patient denies ever having seizures in the past and states she is a type II diabetic as diagnosed by her PCP. She has never used insulin before. Chest x-ray was unremarkable as well as her head CT on admission. By far the most remarkable finding on physical exam is how extremely emaciated the patient is in terms of her muscle mass in general appearance. She is weak all over but this is equal and there are no focal findings. She has a negative neurologic exam other than this. Reflexes and cranial nerves are intact grossly. Patient denies any history of autoimmune disease but states that she has a maternal aunt who has type 1 diabetes. Patient states she had an upper and lower endoscopy within the past year but she does not remember why this was done or what the results were. Patient is highly suspicious for a autoimmune malabsorption disease. She will be admitted to stepdown unit with seizure precautions, as needed Ativan, extensive metabolic and autoimmune work-up, MRI brain, EEG. She will have sliding scale insulin and Accu-Cheks but we will keep her off the insulin drip for now given she is insulin corey and has a high likelihood of dropping her blood sugar precipitously if she is given too much insulin too quickly. Hospital Course Hospital Course: Patient was admitted to the hospital for evaluation of new onset seizure episode. At that time, patient was noted to be in diabetic ketoacidosis. Notably, patient was on semaglutide at home but there was high suspicion upon admission that patient does have type 1 diabetes mellitus especially given patient's small body habitus and patient's early age of onset. Patient was treated with insulin and IV fluids after which her ketoacidosis resolved. Patient was later transitioned to low-dose Lantus. Hemoglobin A1c was 7.2. Regarding patient's new onset seizure, patient's encephalopathy resolved. She underwent EEG which was normal. MRI of the brain was done which showed abnormalities in signal involving the cortical region of the anterior and mesial left frontal lobe as well as additional small focus involving the left paramedian occipital lobe. She underwent LP which was normal and negative for any infectious/inflammatory process. The hospitalist provider due to phone consultation with neurologist at [facility] Dr. Buster Peralta regarding patient's seizure and also discussing potential etiologies of the abnormality found on the MRI in conjunction with patient's history of hearing loss. Dr. Peralta advised that there was no need to start AED prophylaxis as her seizure was likely precipitated by her DKA and that in the setting of normal EEG, even despite abnormality an MRI of the brain, AED prophylaxis is not indicated for this first-time seizure. Patient will be following up with him in the outpatient setting for further evaluation. Physical Exam Vital Signs: Temp Pulse Resp BP Pulse Ox 97.9 F 74 16 92/62 L 97 11/15/19 07:37 11/15/19 07:00 11/15/19 03:19 11/15/19 03:19 11/15/19 03:19 Intake & Output 11/14/19 11/15/19 11/16/19 06:59 06:59 06:59 Intake Total 8272 1259 51 Output Total 1600 2300 Balance 642 -1041 51 Weight 40.7 kg 40.2 kg General appearance: PRESENT: no acute distress, cooperative Neck exam: ABSENT: JVD Respiratory exam: PRESENT: clear to auscultation dusty, unlabored. ABSENT: tachypnea, wheezes Cardiovascular exam: PRESENT: RRR, +S1, +S2. ABSENT: tachycardia GI/Abdominal exam: PRESENT: soft. ABSENT: rebound, rigid, tenderness Neurological exam: PRESENT: alert, awake, oriented to person, oriented to place, oriented to time, oriented to situation Results Laboratory Results: WBC 5.0 10^3/uL (4.0-10.5) 11/15/19 04:45 RBC 3.98 10^6/uL (3.72-5.28) 11/15/19 04:45 Hgb 13.1 g/dL (12.0-15.5) 11/15/19 04:45 Hct 37.1 % (36.0-47.0) 11/15/19 04:45 MCV 93 fl (80-97) 11/15/19 04:45 MCH 32.9 pg (27.0-33.4) 11/15/19 04:45 MCHC 35.3 g/dL (32.0-36.0) 11/15/19 04:45 RDW 11.8 % (11.5-14.0) 11/15/19 04:45 Plt Count 251 10^3/uL (150-450) 11/15/19 04:45 Lymph % (Auto) 36.5 % (13-45) 11/15/19 04:45 Mcdonald % (Auto) 7.9 % (3-13) 11/15/19 04:45 Eos % (Auto) 1.4 % (0-6) 11/15/19 04:45 Baso % (Auto) 0.6 % (0-2) 11/15/19 04:45 Reticulocyte # 0.048 10^6/uL (0.028-0.122) 11/12/19 18:50 Absolute Neuts (auto) 2.7 10^3/uL (1.7-8.2) 11/15/19 04:45 Absolute Lymphs (auto) 1.8 10^3/uL (0.5-4.7) 11/15/19 04:45 Absolute Monos (auto) 0.4 10^3/uL (0.1-1.4) 11/15/19 04:45 Absolute Eos (auto) 0.1 10^3/uL (0.0-0.6) 11/15/19 04:45 Absolute Basos (auto) 0.0 10^3/uL (0.0-0.2) 11/15/19 04:45 Seg Neutrophils % 53.6 % (42-78) 11/15/19 04:45 Platelet Estimate Cancelled 11/13/19 05:33 ESR 10 mm/hr (0-20) 11/12/19 18:50 Retic Count (auto) 1.08 % (0.66-2.85) 11/12/19 18:50 PT 12.6 SEC (11.4-15.4) 11/13/19 15:00 INR 0.92 11/13/19 15:00 APTT 33.9 SEC (23.5-35.8) 11/13/19 15:00 VBG pH 7.21 (7.30-7.42) L 11/12/19 10:50 VBG pCO2 32.4 mmHg (35-63) L 11/12/19 10:50 VBG HCO3 12.6 mmol/L (20-32) L 11/12/19 10:50 VBG Base Excess -14.1 mmol/L 11/12/19 10:50 Sodium 135.8 mmol/L (137-145) L 11/14/19 04:00 Potassium 4.0 mmol/L (3.6-5.0) 11/14/19 04:00 Chloride 104 mmol/L (98-107) 11/14/19 04:00 Carbon Dioxide 24 mmol/L (22-30) 11/14/19 04:00 Anion Gap 8 (5-19) 11/14/19 04:00 BUN 13 mg/dL (7-20) 11/14/19 04:00 Creatinine 0.47 mg/dL (0.52-1.25) L 11/14/19 04:00 Est GFR ( Amer) > 60 (>60) 11/14/19 04:00 Est GFR (MDRD) Non-Af > 60 (>60) 11/14/19 04:00 Glucose 137 mg/dL (75-110) H 11/14/19 04:00 POC Glucose 260 mg/dL (70-110) H 11/15/19 12:49 Hemoglobin A1c % 7.2 % (4.7-6.0) H 11/13/19 09:52 Calcium 9.1 mg/dL (8.4-10.2) 11/14/19 04:00 Phosphorus 3.9 mg/dL (2.5-4.5) 11/13/19 05:33 Magnesium 1.9 mg/dL (1.6-2.3) 11/13/19 05:33 Iron 151.0 ug/dL (37-170) 11/12/19 09:40 TIBC 299 ug/dL (250-450) 11/12/19 09:40 % Saturation 51 % 11/12/19 09:40 Ferritin 200.00 ng/mL (6.2-137.0) H 11/12/19 09:40 Total Bilirubin 0.3 mg/dL (0.2-1.3) 11/12/19 09:40 Direct Bilirubin 0.1 mg/dL (0.0-0.4) 11/12/19 09:40 Neonat Total Bilirubin Not Reportable 11/12/19 09:40 Neonat Direct Bilirubin Not Reportable 11/12/19 09:40 Neonat Indirect Bili Not Reportable 11/12/19 09:40 AST 32 U/L (14-36) 11/12/19 09:40 ALT 20 U/L (<35) 11/12/19 09:40 Alkaline Phosphatase 57 U/L (38-126) 11/12/19 09:40 C-Reactive Protein 7.1 mg/L (<10.0) 11/12/19 09:40 Total Protein 6.8 g/dL (6.3-8.2) 11/12/19 09:40 Albumin 3.8 g/dL (3.5-5.0) 11/12/19 09:40 Vitamin B12 705.0 pg/mL (239-931) 11/13/19 05:33 Folate 11.30 ng/mL (>2.76) 11/13/19 05:33 TSH 0.67 uIU/mL (0.47-4.68) 11/13/19 05:33 Free T4 1.01 ng/dL (0.78-2.19) 11/13/19 05:33 Serum HCG, Qual NEGATIVE (NEGATIVE) 11/12/19 09:40 Urine Color YELLOW 11/12/19 10:35 Urine Appearance CLEAR 11/12/19 10:35 Urine pH 5.0 (5.0-9.0) 11/12/19 10:35 Ur Specific [place] 1.020 11/12/19 10:35 Urine Protein 30 mg/dL (NEGATIVE) H 11/12/19 10:35 Urine Glucose (UA) 150 mg/dL (NEGATIVE) H 11/12/19 10:35 Urine Ketones 20 mg/dL (NEGATIVE) H 11/12/19 10:35 Urine Blood MODERATE (NEGATIVE) H 11/12/19 10:35 Urine Nitrite NEGATIVE (NEGATIVE) 11/12/19 10:35 Urine Bilirubin NEGATIVE (NEGATIVE) 11/12/19 10:35 Urine Urobilinogen NEGATIVE mg/dL (<2.0) 11/12/19 10:35 Ur Leukocyte Esterase TRACE (NEGATIVE) H 11/12/19 10:35 Urine WBC (Auto) 3 /HPF 11/12/19 10:35 Urine RBC (Auto) 1 /HPF 11/12/19 10:35 Urine Bacteria (Auto) TRACE /HPF 11/12/19 10:35 Squamous Epi Cells Auto 2 /HPF 11/12/19 10:35 Urine Mucus (Auto) RARE /LPF 11/12/19 10:35 Urine Ascorbic Acid NEGATIVE (NEGATIVE) 11/12/19 10:35 Fluid Tube Number 3 11/14/19 10:58 CSF Volume 9.9 CC 11/14/19 10:58 CSF Appearance CLEAR 11/14/19 10:58 CSF Color COLORLESS 11/14/19 10:58 CSF WBC 0 /uL (0-5) 11/14/19 10:58 CSF RBC 0 /uL (0-10) 11/14/19 10:58 CSF Glucose 86 mg/dL (40-70) H 11/14/19 10:58 CSF Total Protein 43 mg/dL (12-60) 11/14/19 10:58 Stool Pancreat Elastase Cancelled 11/12/19 18:50 Urine Opiates Screen NEGATIVE 11/12/19 10:35 Urine Methadone Screen NEGATIVE 11/12/19 10:35 Ur Barbiturates Screen NEGATIVE 11/12/19 10:35 Ur Phencyclidine Scrn NEGATIVE 11/12/19 10:35 Ur Amphetamines Screen NEGATIVE 11/12/19 10:35 U Benzodiazepines Scrn NEGATIVE 11/12/19 10:35 Urine Cocaine Screen NEGATIVE 11/12/19 10:35 U Marijuana (THC) Screen NEGATIVE 11/12/19 10:35 Serum Alcohol < 10 mg/dL (NONE DETECTED) 11/12/19 09:40 IgA 237 mg/dL (87-352) 11/12/19 18:50 Endomysial IgA Ab Negative (Negative) 11/12/19 18:50 Tiss Transglutamin IgG <2 U/mL (0-5) 11/12/19 18:50 Tiss Transglutamin IgA <2 U/mL (0-3) 11/12/19 18:50 Anti-RYAN 65 Antibody <5.0 U/mL (0.0-5.0) 11/12/19 18:50 Anti-Gliadin IgG Deam 4 units (0-19) 11/12/19 18:50 Anti-Gliadin IgA Deam 7 units (0-19) 11/12/19 18:50 Herpes Simplex Source Cancelled 11/14/19 04:00 HSV I DNA PCR Cancelled 11/14/19 04:00 HSV II DNA PCR Cancelled 11/14/19 04:00 Melissa Ink NEGATIVE (NEGATIVE) 11/14/19 10:58 Slides for Path Review Cancelled 11/13/19 05:33 Impressions: Head CT 11/12/19 00:00 IMPRESSION: 1. Significantly limiting motion on some of the images. 2. Allowing for motion, normal study. Chest X-Ray 11/12/19 09:33 IMPRESSION: NO ACUTE RADIOGRAPHIC FINDING IN THE CHEST. Head MRI 11/13/19 00:00 IMPRESSION: Abnormal T2 and FLAIR signal predominantly involving the cortical region of the anterior and mesial left temporal lobe. Additional small focus involving the left paramedian occipital lobe. Associated local gyral swelling without significant mass effect or midline shift. No evidence of intracranial hemorrhage. Findings nonspecific but can be seen with encephalitis including viral encephalitis (herpes encephalitis), autoimmune encephalitis, among other entities. Findings conveyed to at 1203 hours on 11/13/2019. EVIDENCE OF ACUTE STROKE: NO. Lumbar Puncture 11/14/19 00:00 IMPRESSION: Lumbar puncture under fluoroscopy. No immediate complication. Plan Time Spent: Greater than 30 Minutes Stroke Is this a Stroke Patient?: No Acute Heart Failure - Is this a Heart Failure Patient?: No
[2019-11-15] MEDS: ONDANSETRON HCL INJ/PF 4 MG/2 ML SDV IV PRN (14:29)
[2019-11-15 15:39] VITALS: BP 108/70
[2019-11-16 15:37] LABS: ALPHA-1-GLOBULIN 1 2.9 % (1.1-6.6); ALPHA-2-GLOBULIN 4.1 % (3.0-12.6); CSF ALBUMIN 68.2 % (56.8-76.4); PRE ALBUMIN 3.5 % (2.2-7.1); TOTAL PROTEIN CSF PE 33.1 mg/dL (0.0-44.0)
[2019-11-17 08:49] LABS: CSF PE GAMMA GLOBULIN 7.1 % (3.0-13.0); PROT ELEC MSPIKE Not Observed % (Not Observ)
== END 2019-11-15 16:16 | disposition home or self-care (01) | DRG 637 ==
LOC: ER 09:18 → EH 12:19 → 3S 16:37
PROVIDERS: ADMIT Internal Medicine; ATTEND Internal Medicine
PROC: 009U3ZX Drainage of Spinal Canal, Percutaneous Approach, Diagnostic (ICD-10-PCS; principal; 2019-11-14)
PROC: B01BZZZ Fluoroscopy of Spinal Cord (ICD-10-PCS; 2019-11-14)
DX: E11.10 Type 2 diabetes mellitus with ketoacidosis without coma (principal); E43 Unspecified severe protein-calorie malnutrition; Z68.1 Body mass index [BMI] 19.9 or less, adult; H91.93 Unspecified hearing loss, bilateral; R56.9 Unspecified convulsions; Z79.84 Long term (current) use of oral hypoglycemic drugs; Z83.3 Family history of diabetes mellitus
CPT/HCPCS: 36415; 62328; 70450; 70553; 71045; 80048; 80053; 80307; 81001; 82607; 82656; 82728; 82746; 82803; 82945; 82962; 83036; 83519; 83520; 83540; 83550; 83735; 83916; 84100; 84157; 84166; 84439; 84443; 84703; 85025; 85045; 85610; 85652; 85730; 86140; 86341; 87015; 87070; 87116; 87205; 87206; 87210; 87252; 87529; 89050; 93005; 93010; 95819; 96361; 96374; 99285; A9576; J1815; J1955; J2060; J2405; J3411; J7030; J7120; S0119